=== PATIENT | female | born 1975 | race Two or more races ===

== ENCOUNTER 2022-04-04 09:58 | Emergency (ER) | payer MEDICAID ==
[~2022-04-04] VITALS: Ht 167.6 cm; Wt 83.9 kg
[2022-04-04 10:09] VITALS: BP 152/98
--- NOTE | 2022-04-04 10:17 | NUR ---
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
--- NOTE | 2022-04-04 10:20 | NUR ---
s/p trip and fell down last night at here home c/p pain on rt leg swalen and ecchmosis able to wegle here rt toes skin warm and dry
[2022-04-04] MEDS ORDERED: IBUPROFEN 600 MG TABLET ONE (10:32)
--- NOTE | 2022-04-04 10:35 | NUR ---
Patient discharged to home in stable condition. Written and verbal after care instructions given. Patient verbalizes understanding of instruction.
[2022-04-04] MEDS ORDERED: IBUPROFEN 600 MG TABLET PO ONE (11:00)
== END 2022-04-04 10:36 | disposition home or self-care (01) ==
LOC: ER 10:09
DX: S80.11XA Contusion of right lower leg, initial encounter (principal); F17.200 Nicotine dependence, unspecified, uncomplicated; Z88.8 Allergy status to other drugs, medicaments and biological substances; W01.0XXA Fall on same level from slipping, tripping and stumbling without subsequent striking against object, initial encounter; Y93.K1 Activity, walking an animal; Y92.89 Other specified places as the place of occurrence of the external cause; Y99.8 Other external cause status
CPT/HCPCS: 73590-TC; 73610-TC